=== PATIENT | female | born 1985 | race Caucasian/White ===

== ENCOUNTER 2019-05-19 10:40 | Inpatient (IN) | payer BC, OTHER ==
[2019-05-19 10:51] VITALS: BMI 26.5
[2019-05-19] MEDS ORDERED: CARBOPROST TROME 250 MCG/ML IM PRN ×2 (11:12→14:12)
[2019-05-19] MEDS ORDERED: Ringers Lactate 1,000 ML IV PRN (11:12)
[2019-05-19] MEDS ORDERED: METHYLERGONOVINE 0.2MG/ML AMP IM PRN ×2 (11:12→14:12)
[2019-05-19] MEDS ORDERED: NA CIT/CITRIC AC 30 ML ORAL UDC PO ONE (11:36)
[2019-05-19] MEDS ORDERED: CEFAZOLIN/SWI 2gm 2 GM/20 ML SYR IV SCH (11:45)
[2019-05-19 11:47] LABS: Urine Appearance CLEAR; Urine Bilirubin NEGATIVE (NEG); Urine Blood NEGATIVE (NEG); Urine Color YELLOW; Urine Glucose NEGATIVE (NEG); Urine Protein NEGATIVE (NEG); Urine Specific Gravity 1.015 (1.005-1.030); Urine Urobilinogen 0.2 mg/dL (0.2-1.0); Urine pH 7.5 (5.0-7.0)
[2019-05-19 11:51] LABS: Urine Microscopic Reflex NO UMIC
[2019-05-19 11:54] LABS: Absolute Lymphocytes (CBC) 1.5 K/uL (0.7-4.9); Basophils % 0.3 % (0-1.3); Hematocrit 35.1 % (36.0-45.0); Lymphocytes % 14.9 % (15.3-44.8); MPV 8.2 fL (7.6-11.3); RBC Red Blood Cell Count 4.05 M/uL (3.86-4.86)
[2019-05-19] MEDS ORDERED: Ringers Lactate 1,000 ML IV SCH (12:00)
[2019-05-19] MEDS ORDERED: OXYTOCIN/LR 20 UNIT/1,000 ML BAG IV SCH ×2 (12:00→15:00)
[2019-05-19] MEDS ORDERED: METOCLOPRAMIDE 10 MG/2mL INJ IV SCH (12:00)
[2019-05-19] MEDS ORDERED: FAMOTIDINE 20 MG/2 ML VIAL IV ONE (12:04)
[2019-05-19] MEDS ORDERED: MORPHINE SULFATE/PF 1 MG/ML (10 ML AMP) ONE (12:13)
[2019-05-19] MEDS ORDERED: OXYTOCIN 10 UNIT/ML ML IV ONE (12:14)
[2019-05-19] MEDS ORDERED: ONDANSETRON 4 MG/2 ML VIAL ONE (12:15)
[2019-05-19] MEDS ORDERED: BUPIVACAINE 0.75% (PF) 2 ML SP ONE (12:16)
[2019-05-19] MEDS ORDERED: LIDOCAINE 2% MPF 5 ML VIAL ONE (12:20)
[2019-05-19] MEDS ORDERED: Phenylephrine HCl 10 MG/ML 1 ML VIAL ONE ×2 (13:14→13:19)
[2019-05-19] MEDS ORDERED: MIDAZOLAM HCL 2 MG/2 ML INJ ONE (13:29)
[2019-05-19] MEDS ORDERED: ONDANSETRON 4 MG (ODT) TAB PO PRN (14:12)
[2019-05-19] MEDS ORDERED: METHYLERGONOVINE 0.2 MG TAB PO PRN (14:12)
[2019-05-19] MEDS ORDERED: Oxycodone HCl/Acetaminophen 1 TAB TAB PO PRN (14:12)
--- NOTE | 2019-05-19 14:16 | P.BOP ---
Preoperative diagnosis: 38+wk , prior , early labor Postoperative diagnosis: same, delivery viable female infant Primary procedure: Product Demonstrator: Baljit Thompson Estimated blood loss: 800 Specimen: placenta Anesthesia: Spinal Complications: None Drain(s): Urinary catheter Transferred to: Other (277) Condition: Good
[2019-05-19] MEDS ORDERED: PROMETHAZINE INJ 25 MG/ML AMP IV PRN (17:47)
[2019-05-19] MEDS: KETOROLAC 30 MG/ML INJ IV PRN (18:05)
[2019-05-20 01:16] LABS: RPR (Rapid Plasma Reagin) NON-REACT (NON-REACT)
[2019-05-20] MEDS: KETOROLAC 30 MG/ML INJ IV PRN ×2 (02:07→11:55)
[2019-05-20 05:34] LABS: Absolute Lymphocytes (CBC) 1.3 K/uL (0.7-4.9); Basophils % 0.3 % (0-1.3); Hematocrit 30.7 % (36.0-45.0); MPV 8.5 fL (7.6-11.3); RBC Red Blood Cell Count 3.55 M/uL (3.86-4.86)
--- NOTE | 2019-05-20 06:48 | P.PN ---
Date of Service: 05/20/19 S-No complaints O-Afeb, vs stable, some increased bleeding per nursing, pt given one dose po methergine this am, bandage dry, fundus firm PO h/h as expected A-Satisfactory, watch bleeding P-Advance diet, d/c vega and IV if bleeding controlled.
[2019-05-20] MEDS ORDERED: HYDRALAZINE HCL 20 MG/ML VIAL ONE (07:36)
--- NOTE | 2019-05-20 07:52 | OP ---
Surgeon: Kan Uriarte MD Preoperative Diagnoses: 1.38 plus week . 2.Prior section. 3.Early labor. Procedures: Spinal block anesthesia, repeat section, delivery of viable female infant. Postoperative Diagnoses: 1.38 plus week . 2.Prior section. 3.Early labor. Description Of Procedure: After satisfactory level of spinal block anesthesia and the patient had be en given 2 g of Ancef for antibiotic prophylaxis and Grayson catheter had been placed and pneumatic com pression stockings were in place, she was prepped and draped in the usual fashion for abdominal surge ry. A Pfannenstiel skin incision was made, carried down to the fascia. The fascia incised with a co mbination of sharp and blunt dissection. This was from the underlying rectus muscles. The se were divided in the midline. The peritoneum identified and incised. Vesicouterine peritoneum inci sed, a bladder flap was developed, a low-transverse uterine incision was made. A 6-pound 15-ounce fe male infant, Apgars 9 and 9 was delivered. Cord was clamped, cut, and the placed in a warmer. Cord blood was obtained. Placenta was manually removed and the uterus exteriorized. The cervix wa s dilated from above with a ring clamp, which was passed from the operative field. The uterus was cl osed in 2 layers, running nonlocking suture of 0 Vicryl. Second layer used to imbricate the first. The vesicouterine peritoneum was reapproximated with a running locked suture of 3-0 Vicryl because of some evidence of sinus versus hematoma formation. Three interrupted [id number]-[id number] sutures were pl aced just above the incision. This seemed to have controlled this very well. The uterus was returne d to peritoneal cavity, which was cleaned of amniotic fluid, debris, and blood clot. The rectus musc les were approximated in the midline with simple sutures of 0 Vicryl. The fascia was closed with run molly sutures from either margin to the middle of #1 Vicryl. The skin was closed with simple subcutan eous sutures of 3-0 Vicryl, subdermal suture of 3-0 Vicryl, and then subcuticular suture of 4-0 Monoc ryl. Patient was taken to recovery room in satisfactory condition with a Grayson catheter in place and pneumatic compression stockings in place. Private Duty Rn Surgeon: Dr. Thompson. Anesthesia: Ofe Nichols and Dr. Torres. Quantitative Blood Loss: 876 cc. MALISSA/SNEHA Voice ID: [id number] Report ID: [id number]
--- NOTE | 2019-05-20 08:03 | PREOPHP ---
Date of Admission: 05/19/2019 History Of Present Illness: Ms. Ca is a 33-year-old female, 4, para 1- 0-2-1, now at 38+ weeks' gestation. She has been followed by me during this without compli cations other than prior section. She reports the onset of contractions at 3:30 this mornin g and they have become persistent. She comes to Labor and Delivery complaining of small amount of sp otting. Past Medical History: Please see record. Family History: Please see record. Review of Systems: She reports no recent cough, cold, fever, or chills. No recent nausea or vomiting. No breast knots or lumps. No bowel or bladder issues. has been active. Physical Examination: General: Reveals a pleasant female, in no apparent distress. Neck: Supple without adenopathy or thyromegaly. Lungs: Clear. Cardiac: Regular rate and rhythm without murmurs. Breasts: Not examined. Abdomen: Estimated weight 6+ pounds. Pelvic: Cervix 1 cm long, vertex, ballotable. Extremities: No cyanosis, clubbing, or edema. Impression: 38+ week , prior section with cephalopelvic disproportion. Plan: The patient will undergo repeat section. Risks and benefits are discussed. She has signed operative permit in my presence. MALISSA/SNEHA Voice ID: [id number]
[2019-05-20] MEDS ORDERED: FAMOTIDINE 20 MG/2 ML VIAL IV ONE (11:37)
[2019-05-20] MEDS ORDERED: Ringers Lactate 1,000 ML IV ONE (15:45)
[2019-05-20 17:28] VITALS: BP 112/68; TEMP 98.1
[2019-05-21 18:28] LABS: HBsAG Nonreactive (Nonreactive)
== END 2019-05-20 21:05 | disposition home or self-care (01) | DRG 788 ==
LOC: 2ND-WC 10:40
PROVIDERS: ADMIT Specialist; ATTEND Specialist
PROC: 10D00Z1 Extraction of Products of Conception, Low, Open Approach (ICD-10-PCS; principal; 2019-05-19 13:17)
DX: O34.219 Maternal care for unspecified type scar from previous cesarean delivery (principal); Z3A.39 39 weeks gestation of pregnancy; Z37.0 Single live birth
CPT/HCPCS: 36415; 81003; 85025; 86592; 86850; 86900; 86901; 87340; 88307; J0360; J0690; J2210; J2250; J2370; J2405; J2550; J2590; J2765; J7120